=== PATIENT | female | born 1945 | race Caucasian/White ===

== ENCOUNTER 2018-02-25 20:49 | Emergency (ER) | payer MEDICARE, OTHER ==
[2018-02-25] MEDS ORDERED: XYLOCAINE 2% HCL 20 ML MDV IJ ONE (21:37)
[2018-02-25] MEDS ORDERED: XYLOCAINE 1% HCL 20 ML MDV ONE (21:41)
--- NOTE | 2018-02-25 22:15 | ERPHSYRPT ---
- History of Present Illness Time Seen by Provider: 02/25/18 21:10 Source: patient Exam Limitations: clinical condition Patient Subjective Stated Complaint: pt is alert and oriented. pt is ambulatory with steady gait. pt states that she fell while stepping up over the curb. pt has a couple skin tears to left and right hands and a laceration/puncture wound the the top of her nose. pt denies loss of consciousness. pt denies nose bleed. pt has no loss of memory. pt is not actively bleeding. Triage Nursing Assessment: see above Physician History: PATIENT STATES SHE TRIPPED AND FELL OVER CURB FELL TO GROUND SUSTAINED LACERATION OVER NOSE. DENIES NECK PAIN, HEADACHE, LOSS OF CONSCIOUSNESS, NUMBNESS, TINGLING OR WEAKNESS IN EXTREMITIES. Occurred: just prior to arrival Reason for Fall: tripped Injuries/Pain Location: face Loss of Consciousness: no loss of consciousness Severity of Pain-Max: none Severity of Pain-Current: none Associated Symptoms (Fall): other (NASAL LACERATION) Allergies/Adverse Reactions: No Known Drug Allergies Allergy (Unverified 02/25/18 21:07) Hx Tetanus, Diphtheria Vaccination/Date Given: No Hx Influenza Vaccination/Date Given: No Hx Pneumococcal Vaccination/Date Given: No Immunizations Up to Date: No - Review of Systems Constitutional: No Fever, No Chills Eyes: No Symptoms Ears, Nose, & Throat: Other (NASAL LACERATION) Respiratory: No Cough, No Dyspnea Cardiac: No Symptoms, No Chest Pain, No Edema, No Syncope Abdominal/Gastrointestinal: No Abdominal Pain, No Nausea, No Vomiting, No Diarrhea Genitourinary Symptoms: No Dysuria Musculoskeletal: No Back Pain, No Neck Pain Skin: No Rash Neurological: No Dizziness, No Focal Weakness, No Sensory Changes Psychological: No Symptoms Endocrine: No Symptoms All Other Systems: Reviewed and Negative - Past Medical History Pertinent Past Medical History: Yes Neurological History: No Pertinent History ENT History: No Pertinent History Cardiac History: No Pertinent History Respiratory History: No Pertinent History Endocrine Medical History: Diabetes Type II Musculoskeletal History: No Pertinent History GI Medical History: No Pertinent History History: No Pertinent History Psycho-Social History: No Pertinent History Female Reproductive Disorders: No Pertinent History - Past Surgical History Past Surgical History: Yes Neuro Surgical History: No Pertinent History Cardiac: No Pertinent History Respiratory: No Pertinent History Gastrointestinal: Appendectomy Genitourinary: No Pertinent History Musculoskeletal: No Pertinent History Female Surgical History: Section - Social History Smoking Status: Current every day smoker How long have you smoked: 0.5 Drug Use: none Patient Lives Alone: No - Female History Hx Now: No - Nursing Vital Signs Nursing Vital Signs: Initial Vital Signs Temperature 97.9 F 02/25/18 20:49 Pulse Rate 78 02/25/18 20:49 Respiratory Rate 16 02/25/18 20:49 Blood Pressure 128/77 02/25/18 20:49 O2 Sat by Pulse Oximetry 98 02/25/18 20:49 Pain Scale Pain Intensity 2 - [place] Coma Score Best Eye Response ([place]): (4) open spontaneously Best Verbal Response ([place]): (5) oriented Best Motor Response ([place]): (6) obeys commands [place] Total: 15 - Physical Exam General Appearance: no apparent distress, alert Head Injury: no evidence of injury Eye Exam: PERRL/EOMI ENT Exam: airway nml, other (THERE IS A NASAL LACERATION OVER BRIDGE 2MM X 7MM, NO SWELLING OR CREPITUS) Neck Exam: normal inspection, No tenderness Respiratory/Chest Exam: normal breath sounds, No chest tenderness, No respiratory distress Cardiovascular Exam: normal heart sounds, regular rate/rhythm Gastrointestinal Exam: soft, No tenderness, No distention, No guarding, No ecchymosis Back Exam: normal inspection, No vertebral tenderness Extremity Exam: normal inspection, normal range of motion, pelvis stable, No deformities Peripheral Pulses: carotid (R): 2+, carotid (L): 2+, femoral (R): 2+, femoral (L ): 2+, dorsalis-pedis (R): 2+, dorsalis-pedis (L): 2+ Neurologic Exam: alert, oriented x 3, cooperative, sensation nml, No motor deficits Skin Exam: normal color, warm, dry SpO2: 98 Oxygen Delivery: Room Air Procedures - Laceration/Wound Repair Head Wound Location: face (NASAL LACERATION ) Wound Length (cm): 0.7 Wound's Depth, Shape: linear Wound Explored: clean Irrigated: Yes Hibiclens Prep: Yes Anesthesia: local, 2% Lidocaine Volume Anesthetic (ccs): 3 Suture Size/Type: 5-0, nylon Number of Sutures: 5 Layer Closure?: No - CT Exams Head CT Interpretation: Tele-radiologist Report, No/Intracranial Hemorrhag Ordered Tests: Active Orders 24 hr Category Date Time Status HEAD WITHOUT CONTRAST [CT] Stat Exams 02/25/18 21:33 Taken Medication Summary Discontinued Medications Generic Name Dose Route Start Last Admin Trade Name Juan PRN Reason Stop Dose Admin Lidocaine HCl 3 ml 02/25/18 21:37 02/25/18 21:39 Xylocaine 2% Hcl 20 Ml Mdv IJ 02/25/18 21:38 3 ml STAT ONE Administration Lidocaine HCl Confirm 02/25/18 21:41 Xylocaine 1% Hcl 20 Ml Mdv Administered 02/25/18 21:42 Dose 3 ml .ROUTE .[employer]-MED ONE - Progress Progress Note: 02/25/18 22:16 ADMINISTERED AUGMENTIN 875MG ORALLY Counseled pt/family regarding: diagnosis, need for follow-up, rad results - Departure Time of Disposition: 22:45 Departure Disposition: Home Clinical Impression: NASAL LACERATION/CONTUSION, FOREHEAD CONTUSION Condition: Stable Critical Care Time: No Referrals: YENNY ROMERO [Primary Care Provider] - Additional Instructions: FOLLOW HEAD INJURY INSTRUCTIONS. ANTIBIOTIC AUGMENTIN 875MG TWICE DAILY FOR 10 DAYS. HAVE STITCHES REMOVED AT 8 DAYS. WATCH FOR SIGNS OF INFECTION REDNESS, SWELLING OR DRAINAGE
[2018-02-25 22:54] VITALS: BP 136/90; PULSE 62; O2SAT 99
--- NOTE | 2018-02-26 15:28 | XRAY ---
Exam: CT of the head without IV contrast from 02/25/2018. CTDI: 48.95 Comparison: None. Indication: 72-year-old female with fall, denies loss of consciousness, laceration/puncture wound to bridge of nose. Technique: Non-IV contrast axial images were obtained through the brain. Reconstructed coronal and sagittal images were created and reviewed. Findings: The ventricles are within normal limits of size for the patient's age. No focal mass effect or midline shift is seen. There is some mild bilateral periventricular and subcortical white matter changes, likely due to mild chronic microvascular disease. No acute territorial infarct is seen. There is no evidence of acute intracranial bleed or abnormal extra-axial fluid collection. There is mild prominence of the cortical sulci and fissures/cisterns consistent with the patient's age. The calvarium of the skull appears intact. I see no fracture. I note some focal soft tissue swelling overlying the lower right frontal region. Incidentally, I believe there are a couple calcified/partially calcified sebaceous cysts within the upper parietal convexity (1 each side of midline). The visualized paranasal sinuses are essentially clear. The mastoid air cells are adequately aerated. No abnormality of the orbits is seen. Impression: 1. Mild soft tissue swelling is seen overlying the lower right side of the forehead. No underlying fracture or evidence of acute intracranial bleed is seen. 2. Mild chronic changes are seen, as discussed above.
== END 2018-02-25 22:54 | disposition home or self-care (01) ==
LOC: ED 20:49
DX: S01.21XA Laceration without foreign body of nose, initial encounter (principal); S00.33XA Contusion of nose, initial encounter; S00.83XA Contusion of other part of head, initial encounter; W01.0XXA Fall on same level from slipping, tripping and stumbling without subsequent striking against object, initial encounter
CPT/HCPCS: 12011; 70450; 96372; 99284

== ENCOUNTER 2019-09-08 16:04 | Emergency (ER) | payer MEDICARE, OTHER ==
--- NOTE | 2019-09-08 16:25 | ERPHSYRPT ---
- History of Present Illness Time Seen by Provider: 09/08/19 16:24 Source: patient Exam Limitations: no limitations Physician History: The patient is a 74-year-old female with a past medical history significant for dementia presents with a chief complaint of low back pain. She was accompanied by her daughter provided details pertaining to the history of present illness who is the primary historian. The patient reportedly was visiting her brother in [place] 3 days ago when she reportedly had a mechanical fall down 3-4 steps resulting in the injury to her lower back. Since that time, patient has persistently complained of severe low back pain and has had difficulty ambulating because of the pain. She described the pain as a "hurts" and reports that it radiates over the entire aspect of her lower back by rubbing her hands across her lower back. The pain is constant and moderate in severity he worsens whenever she bends or twists her torso in addition to hip flexion. She's been taking Tylenol for the pain without relief. There were no additional injuries reported. Modifying Factors: Improves With: acetaminophen Associated Symptoms: No nausea, No vomiting, No fever, No headaches Allergies/Adverse Reactions: No Known Drug Allergies Allergy (Verified 09/08/19 16:24) Hx Tetanus, Diphtheria Vaccination/Date Given: No Hx Influenza Vaccination/Date Given: No Hx Pneumococcal Vaccination/Date Given: No - Review of Systems Constitutional: No Symptoms Musculoskeletal: Back Pain All Other Systems: Unable due to dementia - Past Medical History Pertinent Past Medical History: Yes Neurological History: Dementia ENT History: No Pertinent History Cardiac History: No Pertinent History Respiratory History: No Pertinent History Endocrine Medical History: Diabetes Type II Musculoskeletal History: No Pertinent History GI Medical History: No Pertinent History History: No Pertinent History Psycho-Social History: No Pertinent History Female Reproductive Disorders: No Pertinent History - Past Surgical History Past Surgical History: Yes Neuro Surgical History: No Pertinent History Cardiac: No Pertinent History Respiratory: No Pertinent History Gastrointestinal: Appendectomy Genitourinary: No Pertinent History Musculoskeletal: No Pertinent History Female Surgical History: Section - Social History Smoking Status: Current every day smoker How long have you smoked: 0.5 Drug Use: none Patient Lives Alone: No - Nursing Vital Signs Nursing Vital Signs: Initial Vital Signs Temperature 99.0 F 09/08/19 16:25 Pulse Rate 66 09/08/19 16:25 Respiratory Rate 16 09/08/19 16:25 Blood Pressure 154/83 09/08/19 16:25 O2 Sat by Pulse Oximetry 100 09/08/19 16:25 Pain Scale Pain Intensity [] 8 Pain Intensity 6 - Physical Exam General Appearance: no apparent distress, alert Eye Exam: PERRL/EOMI Ears, Nose, Throat Exam: normal ENT inspection, moist mucous membranes, No pharynx normal, No dry mucous membranes, No pharyngeal erythema, No tonsillar exudate Neck Exam: normal inspection, non-tender, supple, No meningismus, No mass Respiratory Exam: normal breath sounds, chest tenderness, lungs clear, airway intact, No respiratory distress, No diminished breath sounds, No accessory muscle use Cardiovascular Exam: regular rate/rhythm, normal heart sounds, normal peripheral pulses, capillary refill <2 sec, No murmur, No edema Gastrointestinal/Abdomen Exam: soft, No tenderness, No distention, No mass Pelvic Exam: not done Rectal Exam: deferred Back Exam: vertebral tenderness, point tenderness, other (Tenderness and pain noted to the mid and paralumbar spine with no crepitus or deformity. Tenderness noted to the sacrum and coccyx ), No CVA tenderness Extremity Exam: other (Back pain with hip flexion. Mild tenderness noted over the L iliac crest. No hip or groin tenderness. No pain with axial loading the hips. No abormal internal or external rotation of the lower extremities or shortening to suggest fracture or dislocation), No tenderness Neurologic Exam: alert, oriented x 3 Skin Exam: normal color, warm, dry, No rash, No petechiae, No jaundice O2 Delivery: Room Air - Course Nursing assessment & vital signs reviewed: Yes - CT Exams Lumbar Spine CT Interpretation: Tele-radiologist Report (Chronic appearing 20% anterior compression fracture of T12) Pelvis CT Interpretation: Tele-radiologist Report (No acute fracture in the pelvis or sacrococygeal area) Ordered Tests: Active Orders 24 hr Category Date Time Status LUMBAR SPINE W/O [CT] Stat Exams 09/08/19 17:19 Taken PELVIS WITHOUT CONTRAST [CT] Stat Exams 09/08/19 17:21 Taken Medication Summary Discontinued Medications Generic Name Dose Route Start Last Admin Trade Name Freq PRN Reason Stop Dose Admin Hydrocodone Bitart/Acetaminophen 1 tab 09/08/19 17:08 09/08/19 17:10 [place] 5/325 Mg PO 09/08/19 17:09 1 tab STAT ONE Administration Hydrocodone Bitart/Acetaminophen Confirm 09/08/19 17:09 [place] 5/325 Mg Administered 09/08/19 17:10 Dose 1 tab .ROUTE .STK-MED ONE - Progress Progress: improved Progress Note: 09/08/19 18:05 The patient was ambulated with a walker and able to weight bear on her lower extremities and hips without difficulty. She complained of right paralumbar spine pain. - Departure Departure Disposition: Home Clinical Impression: Low back pain, Lumbar spine strain, Fracture of thoracic vertebra with routine healing Condition: Stable Critical Care Time: No Referrals: YENNY ROMERO [Primary Care Provider] - Instructions: Low Back Pain (DC) Additional Instructions: Please see your primary care provider as soon as possible and inquire about the need for home or outpatient physical therapy. You will also need to inquire about the need for home health visits. Please use your walker at all times when walking to avoid falls. Apply a single lidocaine patch to the lower back daily. Please remove the patch before applying another patch daily. Please alternate sites on your lower back when reapplying a patch. Plan of Treatment: Nontoxic in appearance. CTs of lumbar spine and pelvis reviewed and with chronic appearing T12 compression fracture but with no fractures or subluxations. Patient was able to ambulate with a walker which is her baseline although with discomfort. She was discharged home with instructions to f/u with her PCP and given lidocaine patches and a short course of [place] for pain. Family was instructed to inquire about the need for PT and home health when the patient f/u with her PCP. I'm unable to set this up in the ED tonight. In the meantime, family reports the patient does not use her walker all the time and they were instructed to have her do so in the future to avoid future falls and injuries. Patient likely suffering from a lumbar strain at this time, differential also includes psoas strain or injury, but will need to f/u with PCP and I feel MRI can be obtain as an OP at the discretion of her PCP. Prescriptions: Hydrocodone Bit/Acetaminophen [Hydrocodon-Acetaminophen 5-325] 1 each PO Q6- 8HPRN PRN #10 tablet PRN Reason: Moderate Pain
[2019-09-08] MEDS ORDERED: NORCO 5/325 MG PO ONE (17:08)
[2019-09-08] MEDS ORDERED: NORCO 5/325 MG ONE (17:09)
[2019-09-08 18:11] VITALS: BP 126/88; PULSE 75; O2SAT 100
--- NOTE | 2019-09-09 08:39 | XRAY ---
Indication: Pain following fall 3 days ago. Multiple contiguous axial images obtained through the lumbar spine. Sagittal and coronal reformatted images obtained. Comparison: None Age-appropriate osteopenia, mild multilevel thoracolumbar endplate spurring, and mild bilateral L4-S1 degenerative facet hypertrophy. Minimal L3-S1 broad-based disc osteophyte complex. No large disc herniation or spinal canal stenosis. Sagittal and coronal reformatted images demonstrates normal lumbar lordosis with minimal dextroscoliosis centered at L2. Multilevel disc space narrowing, greatest at L5-S1 level. T12 segment demonstrates remote appearing compression deformity with approximately 25% height loss. No acute compression fracture or subluxation. Visualized noncontrasted soft tissues demonstrates bibasilar pulmonary fibrosis/scarring, gallstones, and mild scattered vascular calcifications. Impression: 1. Remote appearing T12 compression deformity. 2. Negative for acute fracture/subluxation. 3. Incidental osteopenia, multilevel degenerative changes, pulmonary fibrosis/scarring, stones, and scattered arteriosclerotic calcifications. Comment: Preliminary interpretation was made by [facility]. No critical discrepancy.
--- NOTE | 2019-09-09 08:41 | XRAY ---
Indication: Pain following fall 3 days ago. Multiple contiguous axial images obtained through the pelvis. Two-dimensional sagittal and coronal reformatted images obtained. Comparison: None CT lumbar spine reported separately. Age-appropriate osteopenia. Mild/moderate degenerative changes of both hips. The SI joints are bilaterally symmetric. No acute fracture, dislocation, or suspicious bony lesions. Visualized noncontrasted soft tissues demonstrates mild scattered vascular calcifications/pelvic phleboliths. Impression: 1. Negative acute fracture/dislocation. 2. Incidental osteopenia and degenerative changes of both hips. Comment: Preliminary interpretation was made by [facility]. No critical discrepancy.
== END 2019-09-08 18:30 | disposition home or self-care (01) ==
LOC: ED 16:04
DX: M54.5 Low back pain (principal); S39.012A Strain of muscle, fascia and tendon of lower back, initial encounter; Z87.81 Personal history of (healed) traumatic fracture; E11.9 Type 2 diabetes mellitus without complications
CPT/HCPCS: 72131; 72192; 99284; A9270-GY

== ENCOUNTER 2019-10-10 00:23 | Emergency (ER) | payer MEDICARE, OTHER ==
--- NOTE | 2019-10-10 00:52 | ERPHSYRPT ---
- History of Present Illness Time Seen by Provider: 10/10/19 00:51 Historian: patient, family Exam Limitations: no limitations Physician History: This is a 74-year-old white female patient of Dr. Combs. Patient has had chronic right flank and back pain over the last several weeks. Patient was seen approximately 1 month ago in the emergency room for the same problem and complaint. Patient's daughter describes patient's muscle skeletal pain as muscle pulling away from bone. Patient's family is the patient might have a very tract infection or kidney infection. Patient states the pain during the evening. Patient denies falling or having been involved with an acute injury. Patient has no dysuria, no frequency and no urgency. Patient has been using a Lidoderm patch but this is not helping her pain tonight. Timing/Duration: worse Activities at Onset: none Quality: cramping, sharpness, stabbing Abdominal Pain Onset Location: RLQ, flank (right) Pain Radiation: RLQ, flank (right ) Severity of Pain-Max: moderate Severity of Pain-Current: moderate Modifying Factors: Improves With: movement Associated Symptoms: denies symptoms, other Allergies/Adverse Reactions: No Known Drug Allergies Allergy (Verified 09/08/19 16:24) Home Medications: Donepezil HCl 10 mg PO BID 10/10/19 [History] Levothyroxine Sodium 100 mcg PO DAILY 10/10/19 [History] Lidocaine 1 each TOP DAILY 10/10/19 [History] Hx Tetanus, Diphtheria Vaccination/Date Given: No Hx Influenza Vaccination/Date Given: No Hx Pneumococcal Vaccination/Date Given: No - Review of Systems Constitutional: No Symptoms Eyes: No Symptoms Ears, Nose, & Throat: No Symptoms Respiratory: No Symptoms Cardiac: No Symptoms Genitourinary Symptoms: Flank Pain (right) Musculoskeletal: Back Pain (right) Skin: No Symptoms Neurological: No Symptoms Psychological: No Symptoms Endocrine: No Symptoms Hematologic/Lymphatic: No Symptoms Immunological/Allergic: No Symptoms All Other Systems: Reviewed and Negative - Past Medical History Pertinent Past Medical History: Yes Neurological History: Dementia ENT History: No Pertinent History Cardiac History: No Pertinent History Respiratory History: No Pertinent History Endocrine Medical History: Diabetes Type II Musculoskeletal History: No Pertinent History GI Medical History: No Pertinent History History: No Pertinent History Psycho-Social History: No Pertinent History Female Reproductive Disorders: No Pertinent History - Past Surgical History Past Surgical History: Yes Neuro Surgical History: No Pertinent History Cardiac: No Pertinent History Respiratory: No Pertinent History Gastrointestinal: Appendectomy Genitourinary: No Pertinent History Musculoskeletal: No Pertinent History Female Surgical History: Section - Social History Smoking Status: Current every day smoker How long have you smoked: 0.5 Exposure to second hand smoke: Yes Drug Use: none Patient Lives Alone: No - Nursing Vital Signs Nursing Vital Signs: Initial Vital Signs Temperature 97.6 F 10/10/19 00:49 Pulse Rate 65 10/10/19 00:49 Respiratory Rate 18 10/10/19 00:49 Blood Pressure 135/64 10/10/19 00:49 O2 Sat by Pulse Oximetry 100 10/10/19 00:49 Pain Scale Pain Intensity 0 - Physical Exam General Appearance: mild distress, alert, anxiety Eye Exam: PERRL/EOMI, eyes nml inspection Ears, Nose, Throat Exam: normal ENT inspection, moist mucous membranes Neck Exam: normal inspection, non-tender, supple, full range of motion Respiratory Exam: normal breath sounds, lungs clear, airway intact, No chest tenderness, No respiratory distress Cardiovascular Exam: regular rate/rhythm, normal heart sounds, normal peripheral pulses Gastrointestinal/Abdomen Exam: soft, normal bowel sounds, No tenderness, No guarding Pelvic Exam: not done Rectal Exam: not done Back Exam: normal inspection, normal range of motion, CVA tenderness (right), No vertebral tenderness Extremity Exam: normal inspection, normal range of motion, pelvis stable Neurologic Exam: alert, oriented x 3, cooperative, environmental marketing representative II-XII nml as tested Skin Exam: normal color, warm, dry Lymphatic Exam: No adenopathy SpO2 Interpretation: normal O2 Delivery: Room Air Ordered Tests: Active Orders 24 hr Category Date Time Status ABDOMEN AND PELVIS W/0 CONTRAS [CT] Stat Exams 10/10/19 01:06 Taken UA W/RFX UR CULTURE Stat Lab 10/10/19 02:12 Completed Medication Summary Discontinued Medications Generic Name Dose Route Start Last Admin Trade Name Freq PRN Reason Stop Dose Admin Ceftriaxone Sodium 1,000 mg 10/10/19 02:40 10/10/19 02:45 Rocephin 1000 Mg Inj IM 10/10/19 02:41 1,000 mg STAT ONE Administration Ceftriaxone Sodium Confirm 10/10/19 02:42 Rocephin 1000 Mg Inj Administered 10/10/19 02:43 Dose 1,000 mg .ROUTE .STK-MED ONE Ketorolac Tromethamine 60 mg 10/10/19 02:41 10/10/19 02:45 Toradol 30 Mg Injection IM 10/10/19 02:42 60 mg STAT ONE Administration Ketorolac Tromethamine Confirm 10/10/19 02:42 Toradol 30 Mg Injection Administered 10/10/19 02:43 Dose 60 mg .ROUTE .STK-MED ONE Ondansetron HCl 4 mg 10/10/19 02:40 10/10/19 02:45 Zofran Odt 4 Mg PO 10/10/19 02:41 4 mg STAT ONE Administration Ondansetron HCl Confirm 10/10/19 02:42 Zofran Odt 4 Mg Administered 10/10/19 02:43 Dose 4 mg .ROUTE .STK-MED ONE Lab/Rad Data: Laboratory Results 10/10/19 Range/Units 02:12 Urine Color YELLOW (YELLOW) Urine Appearance CLEAR (CLEAR) Urine pH 5.0 (5-6) Ur Specific [place] 1.010 (1.005-1.025) Urine Protein NEGATIVE (Negative) Urine Ketones NEGATIVE (NEGATIVE) Urine Blood NEGATIVE (0-5) Doyle/ul Urine Nitrite NEGATIVE (NEGATIVE) Urine Bilirubin NEGATIVE (NEGATIVE) Urine Urobilinogen NEGATIVE (0-1) mg/dL Ur Leukocyte Esterase MODERATE (NEGATIVE) Urine WBC (Auto) 26-50 (0-5) /HPF Urine RBC (Auto) NONE (0-2) /HPF U Epithel Cells (Auto) RARE (FEW) /HPF Urine Bacteria (Auto) NONE (NEGATIVE) /HPF Urine Culture Reflexed NO (NO) Urine Glucose NEGATIVE (NEGATIVE) mg/dL - Progress Progress: improved, re-examined Progress Note: 10/10/19 01:14 differential diagnosis includes muscle skeletal pain, urinary tract infection, nephrolithiasis/ureterolithiasis, back pain, cholecystitis 10/10/19 03:52 ct abd/pelvis-cholelithiasis, chronic t12 compression fx. pt feeling better and resting comfortably Counseled pt/family regarding: lab results, diagnosis, need for follow-up, rad results - Departure Departure Disposition: Home Clinical Impression: UTI (urinary tract infection), Cholelithiasis, Compression fracture of T12 vertebra Condition: Stable Critical Care Time: No Referrals: YENNY COMBS [Primary Care Provider] - Additional Instructions: drink plenty of fluids. tylenol and ibuprofen for pain. follow up with primary doctor regarding gallstones and pain control for chronic compression fracture of T12 vertebral body. Prescriptions: Ciprofloxacin [Cipro 500 MG] 500 mg PO BID #14 tablet
[2019-10-10 02:16] LABS: Appearance CLEAR (CLEAR); Bilirubin NEGATIVE (NEGATIVE); Blood NEGATIVE Ery/ul (0-5); Epithelial Cells RARE /HPF (FEW); Glucose NEGATIVE (NEGATIVE); Ketones NEGATIVE (NEGATIVE); Leukocyte Esterase MODERATE (NEGATIVE); Nitrite NEGATIVE (NEGATIVE); Protein,Urine Dip NEGATIVE (Negative); Urobilinogen NEGATIVE mg/dL (0-1); WBC 26-50 /HPF (0-5)
[2019-10-10] MEDS ORDERED: ZOFRAN ODT 4 MG PO ONE (02:40)
[2019-10-10] MEDS ORDERED: Rocephin 1000 MG INJ IM ONE (02:40)
[2019-10-10] MEDS ORDERED: TORAdol 30 mg Injection IM ONE (02:41)
[2019-10-10] MEDS ORDERED: Rocephin 1000 MG INJ ONE (02:42)
[2019-10-10] MEDS ORDERED: TORAdol 30 mg Injection ONE (02:42)
[2019-10-10] MEDS ORDERED: ZOFRAN ODT 4 MG ONE (02:42)
[2019-10-10 02:57] VITALS: O2SAT 98
[2019-10-10 03:46] VITALS: BP 111/70; PULSE 54
--- NOTE | 2019-10-10 08:52 | XRAY ---
Indication: Chronic right flank pain. Status post fall one month ago. Dementia. Multiple contiguous axial images obtained through the abdomen and pelvis without contrast as ordered. Comparison: None Lung bases demonstrates bibasilar dependent atelectasis without infiltrate or effusion. Tiny left lower lobe calcified granuloma. Heart is not enlarged. Small hiatal hernia. Abdomen/pelvis images slightly degraded by respiration artifact. Noncontrasted stomach and bowel loops appear nonobstructed. Appendectomy reported. No free fluid/air. 1 cm gallstone. Tiny calcified splenic granuloma. Remaining liver, gallbladder, pancreas, spleen, adrenal glands, kidneys, ureters, bladder, and uterus appear unremarkable for noncontrast exam. Mild scattered aortoiliac calcifications without AAA. Osseous structures demonstrates osteopenia, mild degenerative changes throughout the thoracolumbar spine, and moderate bilateral hip degenerative arthropathy. Remote appearing T12 compression fracture with greater than 75% height loss. Impression: 1. Respiration artifact. 2. Small hiatal hernia, gallstone, evidence for old granulomatous disease, and chronic bony findings. 3. Remaining CT abdomen/pelvis without contrast exam is negative. Comment: Preliminary interpretation was made by [facility]. No critical discrepancy.
== END 2019-10-10 04:00 | disposition home or self-care (01) ==
LOC: ED 00:23
DX: N39.0 Urinary tract infection, site not specified (principal); K80.20 Calculus of gallbladder without cholecystitis without obstruction; M48.54XA Collapsed vertebra, not elsewhere classified, thoracic region, initial encounter for fracture; R10.31 Right lower quadrant pain; E11.9 Type 2 diabetes mellitus without complications; F03.90 Unspecified dementia, unspecified severity, without behavioral disturbance, psychotic disturbance, mood disturbance, and anxiety
CPT/HCPCS: 74176; 81001; 96372; 99284; J0696; J1885; Q0162